=== PATIENT | female | born 1980 | race Caucasian/White ===

== ENCOUNTER → 2016-07-26 | Outpatient (REF) ==
[2016-07-26 16:03] LABS: THYROID STIMULATING HORMONE 9.1 uIU/mL (0.465-4.680)
== END ==
LOC: ZLAB.WCH 13:24
PROVIDERS: Nurse Practitioner Family
DX: Z01.89 Encounter for other specified special examinations (principal)

== ENCOUNTER → 2017-08-28 | Outpatient (REF) ==
[2017-08-28 19:10] LABS: THYROID STIMULATING HORMONE 6.74 uIU/mL (0.465-4.680)
== END ==
LOC: ZLAB.WCH 18:26
PROVIDERS: Nurse Practitioner Family
DX: Z01.89 Encounter for other specified special examinations (principal)

== ENCOUNTER 2020-06-30 19:50 | Emergency (ER) | payer OTHER ==
[~2020-06-30] VITALS: Ht 165.1 cm; Wt 100.0 kg
[2020-06-30] MEDS ORDERED: ALLEGRA 180MG180 MG PO (20:11)
[2020-06-30] MEDS ORDERED: PEPCID 20MG TAB20 MG PO (20:12)
[2020-06-30] MEDS ORDERED: ACCOLATE 220 MG/1 TA PO (20:12)
[2020-06-30] MEDS ORDERED: VITAMIN C500 MG PO (20:13)
[2020-06-30] MEDS ORDERED: MASON NATURAL2000 IU PO (20:14)
[2020-06-30] MEDS ORDERED: PRENATAL TABLET PO (20:15)
[2020-06-30] MEDS ORDERED: ZYRTEC 10MG10 MG PO (20:16)
[2020-06-30] MEDS ORDERED: ARMOUR THYROID180 M1 PO (20:17)
[2020-06-30 20:38] LABS: BASO % 0.2 % (0.0-2.0); EOS # 0.1 (0.0-0.7); EOS % 0.6 % (0-4.0); GRAN # 11.7 (1.4-6.5); GRAN % 75.1 % (42.2-75.2); HEMATOCRIT 38.7 % (37.0-47.0); HEMOGLOBIN 13.2 g/dl (12.5-16.0); LYMPH # 2.6 (1.2-3.4); MEAN CELL VOLUME 87 fl (80.0-100.0); MEAN CORPUSCULAR HEMOGLOBIN 30 pg (27.0-31.0); MEAN CORPUSCULAR HGB CONC 34 g/dl (33.0-37.0); MEAN PLATELET VOLUME 9.3 fl (7.4-10.4); MONO % 6.6 % (1.7-9.3); PLATELET COUNT 330 K/mm3 (130-400); RED BLOOD COUNT 4.47 M/mm3 (4.10-5.30); REDCELL DISTRIBUTION WIDTH-CV 13.5 % (11.5-14.5)
[2020-06-30 20:43] LABS: ALBUMIN 4.1 gm/dL (3.5-5.0); BILIRUBIN,TOTAL 0.3 mg/dL (0.0-1.0); CALCIUM 9.3 mg/dL (8.4-10.2); CREATININE, serum 0.56 (0.52-1.25); POTASSIUM 3.3 mmol/L (3.4-5.0); TOTAL PROTEIN 7.3 gm/dL (6.4-8.2)
[2020-06-30 20:47] LABS: COLLECTION METHOD CLEAN CATCH
[2020-06-30 20:53] LABS: MUCOUS Present /lpf; PH 5 (5-8); URINE APPEARANCE Hazy; URINE BACTERIA None Seen /hpf; URINE BILIRUBIN Negative (NEGATIVE); URINE BLOOD Negative (NEGATIVE); URINE COLOR Amber; URINE GLUCOSE Negative (NEGATIVE); URINE KETONE Trace (NEGATIVE); URINE LEUKOCYTE ESTERASE Negative (NEGATIVE); URINE NITRATE Negative (NEGATIVE); URINE PROTEIN(semi-quant) 1+ (NEGATIVE); URINE WBC 0-2 /hpf
[2020-06-30 22:30] VITALS: BP 113/74; PULSE 93; TEMP 98.1
[2020-06-30] MEDS ORDERED: FLEXERIL 1010 MG/TAB PO (22:32)
== END 2020-06-30 22:51 | disposition home or self-care (01) ==
LOC: COL.ER 19:50
PROVIDERS: Emergency Medicine
DX: O20.0 Threatened abortion (principal); O99.891 Other specified diseases and conditions complicating pregnancy; M54.5 Low back pain; R10.2 Pelvic and perineal pain; Z3A.18 18 weeks gestation of pregnancy
CPT/HCPCS: J2405; J3010; J7030

== ENCOUNTER 2020-10-25 11:46 | Outpatient (CLI) | payer OTHER ==
[2020-10-25] VITALS (16 sets, daily range): BP systolic 109–154; BP diastolic 56–91; PULSE 72–90; TEMP 98.1–98.4
[~2020-10-25] VITALS: Ht 165.1 cm; Wt 107.3 kg
--- NOTE | 2020-10-25 11:45 | NUR ---
Pt arrived on unit ambulatory and with complaints of elevated blood pressures at home and a headache. Pt denies any contractions, leaking of fluid or vaginal bleeding and reports normal movement. Vitals signs WNL. Pt's arrival reviewed with Dr. Grande. Orders for labs and serial blood pressures received.
[~2020-10-25 11:46] MED LIST: ACCOLATE 220 MG/1 TA PO; ALLEGRA 180MG180 MG PO; ARMOUR THYROID180 M1 PO; FLEXERIL 1010 MG/TAB PO; MASON NATURAL2000 IU PO; PEPCID 20MG TAB20 MG PO; PRENATAL TABLET PO; VITAMIN C500 MG PO; ZYRTEC 10MG10 MG PO
[2020-10-25] MEDS ORDERED: SYNTHROID 0.10.15 MG PO (12:06)
[2020-10-25] MEDS ORDERED: ACTIGALL 300MG300 MG (12:07)
[2020-10-25] MEDS ORDERED: FLOVENT 220MCG7.9 GM IH (12:07)
[2020-10-25] MEDS ORDERED: FISH OIL 1000MG1 CAP PO (12:08)
[2020-10-25] MEDS ORDERED: PROAIR HFA0.09 MG/AC IH (12:08)
[2020-10-25 12:22] LABS: BASO % 0.4 % (0.0-2.0); EOS # 0.1 (0.0-0.7); EOS % 1.1 % (0-4.0); GRAN # 6.8 (1.4-6.5); GRAN % 73.7 % (42.2-75.2); HEMOGLOBIN 11.9 g/dl (12.5-16.0); LYMPH # 1.5 (1.2-3.4); LYMPH % 16.1 % (20.0-51.0); MEAN CELL VOLUME 88 fl (80.0-100.0); MEAN CORPUSCULAR HEMOGLOBIN 30 pg (27.0-31.0); MEAN CORPUSCULAR HGB CONC 34 g/dl (33.0-37.0); MEAN PLATELET VOLUME 9.9 fl (7.4-10.4); MONO # 0.8 (0.1-0.6); MONO % 8.4 % (1.7-9.3); PLATELET COUNT 230 K/mm3 (130-400); RED BLOOD COUNT 4.01 M/mm3 (4.10-5.30); REDCELL DISTRIBUTION WIDTH-CV 13.2 % (11.5-14.5)
[2020-10-25 12:25] LABS: HEMATOCRIT 35.3 % (37.0-47.0)
--- NOTE | 2020-10-25 12:34 | NUR ---
Dr. Grande at the bedside. Plan of care and lab results reviewed with pt and at the bedside. SVE per Dr. Grande /-3
[2020-10-25 12:51] LABS: ALBUMIN 3.4 gm/dL (3.5-5.0); BILIRUBIN,TOTAL 0.1 mg/dL (0.0-1.0); CALCIUM 8.5 mg/dL (8.4-10.2); CREATININE, serum 0.54 (0.52-1.25); TOTAL PROTEIN 6.6 gm/dL (6.4-8.2)
[2020-10-25 14:11] LABS: COLLECTION METHOD CLEAN CATCH
[2020-10-25 14:24] LABS: MUCOUS Present /lpf; PH 5 (5-8); SQUAMOUS EPITHELIAL 0-2 /hpf; URINE APPEARANCE Hazy; URINE BACTERIA Rare /hpf; URINE BILIRUBIN Negative (NEGATIVE); URINE BLOOD Negative (NEGATIVE); URINE COLOR Yellow; URINE GLUCOSE Negative (NEGATIVE); URINE KETONE 2+ (NEGATIVE); URINE LEUKOCYTE ESTERASE Negative (NEGATIVE); URINE NITRATE Negative (NEGATIVE); URINE PROTEIN(semi-quant) Negative (NEGATIVE); URINE RBC 0-2 /hpf; URINE UROBILINOGEN Negative (NEGATIVE)
--- NOTE | 2020-10-25 17:30 | NUR ---
Dr. Grande at the bedside. Orders for IV fluids and meds received. See EMAR for details.
--- NOTE | 2020-10-25 19:57 | NUR ---
MONITORING DC'D AT THIS TIME. PT TO CHANGE INTO STREET [facility] WHILE DISCHARGE PAPERWORK PREPARED.
--- NOTE | 2020-10-25 20:15 | NUR ---
DISCHARGE INSTRUCTIONS REVIEWED WITH PT AND SPOUSE. NOTIFIED TO CONTACT [facility] ON FRIDAY TO NOTIFY THEM OF SYMPTOMS. PT STATES THAT SHE IS SCHEDULED FOR HER NEXT APPOINTMENT THAT DAY ALREADY. INSTRUCTED TO TAKE HOME BP CUFF WITH HER TO THE OFFICE. EDUCATED ON SYMPTOMS ASSOCIATED WITH HER 2ND COVID VACCINE. INSTRUCTED TO RETURN TO THE UNIT IF SYMPTOMS PERSIST, SHE HAS CONSISTENT CONTRACTIONS, HER WATER BREAKS, OR SHE HAS HEAVY VAGINAL BLEEDING. QUESTIONS ENCOURAGED AND ANSWERED, PT AND SPOUSE VERBALIZE UNDERSTANDING. PT OFF THE UNIT AMBULATORY WITH SPOUSE FOR HOME.
== END 2020-10-25 20:15 | disposition home or self-care (01) ==
LOC: LDRO 11:46
PROVIDERS: Obstetrics & Gynecology
DX: O13.3 Gestational [pregnancy-induced] hypertension without significant proteinuria, third trimester (principal); Z3A.35 35 weeks gestation of pregnancy
CPT/HCPCS: J0780; J7121

== ENCOUNTER 2020-11-02 11:15 | Outpatient (CLI) | payer OTHER ==
[~2020-11-02] VITALS: Ht 165.1 cm; Wt 108.9 kg
[~2020-11-02 11:15] MED LIST changes: +ACTIGALL 300MG300 MG; +FISH OIL 1000MG1 CAP PO; +FLOVENT 220MCG7.9 GM IH; +PROAIR HFA0.09 MG/AC IH; +SYNTHROID 0.10.15 MG PO
[2020-11-02 11:53] LABS: COLLECTION METHOD CATHETER
[2020-11-02 12:06] LABS: ALANINE AMINOTRANSFERASE 15 U/L (4-34); ALBUMIN 3.1 gm/dL (3.5-5.0); ALKALINE PHOSPHATASE 85 U/L (50-136); ANION GAP 6 mmol/L (7-16); AST,SGOT 20 U/L (15-37); BILIRUBIN,TOTAL < 0.1 mg/dL (0.0-1.0); BLOOD UREA NITROGEN 7 mg/dL (7-17); CALCIUM 8.4 mg/dL (8.4-10.2); CARBON DIOXIDE 22 mmol/L (22-30); CHLORIDE 107 mmol/L (98-107); CREATININE, serum 0.48 (0.52-1.25); GLUCOSE 125 mg/dL (74-106); POTASSIUM 3.6 mmol/L (3.4-5.0); SODIUM 134 mmol/L (137-145)
[2020-11-02 12:11] LABS: BASO % 0.3 % (0.0-2.0); EOS # 0.1 (0.0-0.7); EOS % 1.1 % (0-4.0); GRAN # 7.9 (1.4-6.5); GRAN % 75.5 % (42.2-75.2); LYMPH # 1.7 (1.2-3.4); MEAN CELL VOLUME 87 fl (80.0-100.0); MEAN CORPUSCULAR HEMOGLOBIN 30 pg (27.0-31.0); MEAN CORPUSCULAR HGB CONC 34 g/dl (33.0-37.0); MONO # 0.7 (0.1-0.6); MONO % 6.6 % (1.7-9.3); PLATELET COUNT 202 K/mm3 (130-400); REDCELL DISTRIBUTION WIDTH-CV 13.3 % (11.5-14.5)
[2020-11-02 12:16] LABS: HEMATOCRIT 32.3 % (37.0-47.0)
[2020-11-02 12:24] LABS: MUCOUS Present /lpf; PH 5 (5-8); SQUAMOUS EPITHELIAL 0-2 /hpf; URINE APPEARANCE Cloudy; URINE BACTERIA Rare /hpf; URINE BILIRUBIN Negative (NEGATIVE); URINE BLOOD Negative (NEGATIVE); URINE COLOR Amber; URINE GLUCOSE Negative (NEGATIVE); URINE KETONE Negative (NEGATIVE); URINE LEUKOCYTE ESTERASE Negative (NEGATIVE); URINE NITRATE Negative (NEGATIVE); URINE PROTEIN(semi-quant) Negative (NEGATIVE); URINE RBC 0-2 /hpf; URINE UROBILINOGEN Negative (NEGATIVE)
[2020-11-02 12:35] VITALS: BP 136/61; PULSE 88
[2020-11-02 12:50] VITALS: BP 120/58; PULSE 80
[2020-11-02 13:05] VITALS: BP 131/77; PULSE 81
[2020-11-02 13:20] VITALS: BP 134/65; PULSE 73
--- NOTE | 2020-11-02 13:35 | NUR ---
PT HERE FOR SERIAL BP'S AND LABS PER DR BAILEY. PT HAS BEEN HAVING INCREASED BLOOD PRESSURES OVER THE LAST COUPLE OF WEEKS. DR BAILEY IN AT 1315 TO EVALUATE LABS AND REVIEW BLOOD PRESSURES. ORDER RECEIVED TO DISCHARGE PT TO HOME AND SHE WILL RETURN NEXT WEEK,11/15/20, FOR A CYTOTEC INDUCTION. DISCHARGE INSTRUCTIONS REVIEWED WITH PT AND .
== END 2020-11-02 13:35 | disposition home or self-care (01) ==
LOC: LDRO 11:15
PROVIDERS: Obstetrics & Gynecology
DX: O13.3 Gestational [pregnancy-induced] hypertension without significant proteinuria, third trimester (principal); Z3A.36 36 weeks gestation of pregnancy

== ENCOUNTER 2020-11-05 20:04 | Outpatient (CLI) | payer OTHER ==
[~2020-11-05] VITALS: Ht 162.6 cm; Wt 108.6 kg
--- NOTE | 2020-11-05 20:10 | NUR ---
G4L2 at 36 weeks and 6 days arrives to hospital with complaint of irregular contractions. Pt states on drive to hospital they were 8-10 minutes apart and describes them as a dull cramp. Pt is being watched closely for pre-e and has induction scheduled for Friday for pre-e. Pt denies blurry vision or RUQ pain. Pt states she has been having headaches off and on for the past 3 weeks. Pt reports feeling good movement, denies LOF, and has had some spotting since yesterday. Pt oriented to room, call light within reach, bed in low and locked position. US and toco explained and applied. Admission assessment started. Vitals obtained. Plan of care reviewed with patient and spouse. SVE -/ballotable, membranes intact.
[2020-11-05 20:30] VITALS: BP 146/90; PULSE 99; TEMP 98
[2020-11-05 21:00] VITALS: BP 145/76; PULSE 83
[2020-11-05] MEDS ORDERED: ACTIGALL 300MG300 MG PO (21:00)
[2020-11-05] MEDS ORDERED: CALCIUM CARBON650 M2 (21:01)
--- NOTE | 2020-11-05 21:30 | NUR ---
RN to bedside. Pt reports feeling 4-5 contractions since arrival on unit. SVE unchanged from previous exam. Reviewed plan of care and discharge with patient, pt agreeable at this time.
[2020-11-05 21:45] VITALS: BP 146/78; PULSE 83
--- NOTE | 2020-11-05 21:55 | NUR ---
Discharge instructions explained and reviewed with patient. All questions answered. Pt seen ambulating off unit with spouse.
== END 2020-11-05 21:55 | disposition home or self-care (01) ==
LOC: LDRO 20:04 → LDR 20:24 → LDRO 21:55
DX: O62.9 Abnormality of forces of labor, unspecified (principal); Z3A.36 36 weeks gestation of pregnancy
CPT/HCPCS: OP

== ENCOUNTER 2020-11-07 04:43 | Inpatient (IN) | payer OTHER ==
[2020-11-07] VITALS (19 sets, daily range): BP systolic 124–168; BP diastolic 63–96; PULSE 62–88; TEMP 97.7–98.6
[~2020-11-07] VITALS: Ht 162.6 cm; Wt 109.1 kg
[~2020-11-07 04:43] MED LIST changes: +ACTIGALL 300MG300 MG PO; +CALCIUM CARBON650 M2
[2020-11-07 20:21] LABS: BASO % 0.2 % (0.0-2.0); EOS # 0.1 (0.0-0.7); EOS % 0.6 % (0-4.0); GRAN # 9.2 (1.4-6.5); GRAN % 74.2 % (42.2-75.2); HEMOGLOBIN 11.3 g/dl (12.5-16.0); LYMPH # 2.1 (1.2-3.4); MEAN CELL VOLUME 88 fl (80.0-100.0); MEAN CORPUSCULAR HEMOGLOBIN 30 pg (27.0-31.0); MEAN CORPUSCULAR HGB CONC 34 g/dl (33.0-37.0); MEAN PLATELET VOLUME 10.1 fl (7.4-10.4); MONO # 0.9 (0.1-0.6); MONO % 7.6 % (1.7-9.3); PLATELET COUNT 206 K/mm3 (130-400); RED BLOOD COUNT 3.77 M/mm3 (4.10-5.30); REDCELL DISTRIBUTION WIDTH-CV 13.7 % (11.5-14.5)
[2020-11-07 20:25] LABS: HEMATOCRIT 33.3 % (37.0-47.0)
[2020-11-07 20:26] LABS: ALANINE AMINOTRANSFERASE 15 U/L (4-34); ALBUMIN 3.3 gm/dL (3.5-5.0); ALKALINE PHOSPHATASE 98 U/L (50-136); ANION GAP 6 mmol/L (7-16); AST,SGOT 21 U/L (15-37); BILIRUBIN,TOTAL < 0.1 mg/dL (0.0-1.0); BLOOD UREA NITROGEN 8 mg/dL (7-17); CALCIUM 8.6 mg/dL (8.4-10.2); CARBON DIOXIDE 22 mmol/L (22-30); CHLORIDE 106 mmol/L (98-107); CREATININE, serum 0.54 (0.52-1.25); GLUCOSE 88 mg/dL (74-106); POTASSIUM 3.7 mmol/L (3.4-5.0); SODIUM 134 mmol/L (137-145); TOTAL PROTEIN 6.1 gm/dL (6.4-8.2)
[2020-11-08] VITALS (75 sets, daily range): BP systolic 115–168; BP diastolic 56–97; PULSE 54–93; TEMP 97.5–98.8
[2020-11-09 01:45] VITALS: BP 124/60; PULSE 68; TEMP 98.2
[2020-11-09 05:20] VITALS: BP 124/64; PULSE 59
[2020-11-09 06:14] LABS: BASO % 0.3 % (0.0-2.0); EOS # 0.2 (0.0-0.7); EOS % 1.6 % (0-4.0); GRAN # 9.5 (1.4-6.5); GRAN % 71.8 % (42.2-75.2); HEMOGLOBIN 10.2 g/dl (12.5-16.0); LYMPH # 2.3 (1.2-3.4); LYMPH % 17.2 % (20.0-51.0); MEAN CELL VOLUME 88 fl (80.0-100.0); MEAN CORPUSCULAR HEMOGLOBIN 30 pg (27.0-31.0); MEAN CORPUSCULAR HGB CONC 34 g/dl (33.0-37.0); MEAN PLATELET VOLUME 9.9 fl (7.4-10.4); MONO # 1.1 (0.1-0.6); MONO % 8.6 % (1.7-9.3); PLATELET COUNT 188 K/mm3 (130-400); RED BLOOD COUNT 3.42 M/mm3 (4.10-5.30); REDCELL DISTRIBUTION WIDTH-CV 13.6 % (11.5-14.5)
[2020-11-09 06:25] LABS: ALBUMIN 2.7 gm/dL (3.5-5.0); BILIRUBIN,TOTAL 0.1 mg/dL (0.0-1.0); CALCIUM 8.3 mg/dL (8.4-10.2); CREATININE, serum 0.68 (0.52-1.25); POTASSIUM 3.9 mmol/L (3.4-5.0); TOTAL PROTEIN 5.3 gm/dL (6.4-8.2)
[2020-11-09 08:40] VITALS: BP 108/56; PULSE 93; TEMP 98.4
[2020-11-09 11:50] VITALS: BP 113/59; PULSE 72; TEMP 98.2
[2020-11-09 16:07] VITALS: BP 140/68; PULSE 75; TEMP 98.1
[2020-11-09 20:00] VITALS: BP 129/72; PULSE 75; TEMP 98.5
[2020-11-10 01:00] VITALS: BP 122/68; PULSE 72; TEMP 98.5
[2020-11-10 08:53] VITALS: BP 134/58; PULSE 76; TEMP 98.1
[2020-11-10] MEDS ORDERED: PERCOCET 325 MG1 TA2 PO (09:54)
== END 2020-11-10 12:05 | disposition home or self-care (01) | DRG 807 ==
LOC: OB 04:43 → LDR 17:37 → OB 11-08 10:40
PROVIDERS: ADMIT Obstetrics & Gynecology
PROC: 10E0XZZ Delivery of Products of Conception, External Approach (ICD-10-PCS; principal; 2020-11-08)
PROC: 10907ZC Drainage of Amniotic Fluid, Therapeutic from Products of Conception, Via Natural or Artificial Opening (ICD-10-PCS; 2020-11-08)
DX: O14.94 Unspecified pre-eclampsia, complicating childbirth (principal); Z37.0 Single live birth; Z3A.37 37 weeks gestation of pregnancy; O99.284 Endocrine, nutritional and metabolic diseases complicating childbirth; O99.52 Diseases of the respiratory system complicating childbirth; O99.344 Other mental disorders complicating childbirth; F41.9 Anxiety disorder, unspecified; J45.909 Unspecified asthma, uncomplicated; E03.9 Hypothyroidism, unspecified
CPT/HCPCS: J2590; J2795; J7120

== ENCOUNTER 2020-11-12 20:13 | Emergency (ER) | payer OTHER ==
[~2020-11-12] VITALS: Ht 162.6 cm; Wt 102.3 kg
[~2020-11-12 20:13] MED LIST changes: +PERCOCET 325 MG1 TA2 PO
[2020-11-12 20:58] LABS: BASO % 0.1 % (0.0-2.0); EOS # 0.3 (0.0-0.7); EOS % 2.8 % (0-4.0); GRAN # 7.7 (1.4-6.5); GRAN % 72.9 % (42.2-75.2); HEMATOCRIT 33.2 % (37.0-47.0); HEMOGLOBIN 11.1 g/dl (12.5-16.0); LYMPH # 1.8 (1.2-3.4); LYMPH % 16.9 % (20.0-51.0); MEAN CELL VOLUME 88 fl (80.0-100.0); MEAN CORPUSCULAR HEMOGLOBIN 29 pg (27.0-31.0); MEAN CORPUSCULAR HGB CONC 33 g/dl (33.0-37.0); MEAN PLATELET VOLUME 8.9 fl (7.4-10.4); MONO # 0.7 (0.1-0.6); MONO % 6.9 % (1.7-9.3); PLATELET COUNT 275 K/mm3 (130-400); RED BLOOD COUNT 3.78 M/mm3 (4.10-5.30); REDCELL DISTRIBUTION WIDTH-CV 13.8 % (11.5-14.5)
[2020-11-12 21:08] LABS: ALBUMIN 3.4 gm/dL (3.5-5.0); BILIRUBIN,TOTAL 0.2 mg/dL (0.0-1.0); CALCIUM 8.4 mg/dL (8.4-10.2); CREATININE, serum 0.59 (0.52-1.25); POTASSIUM 3.7 mmol/L (3.4-5.0); TOTAL PROTEIN 6.5 gm/dL (6.4-8.2)
[2020-11-12 21:59] LABS: COLLECTION METHOD CATHETER
[2020-11-12 22:18] LABS: PH 7 (5-8); URINE APPEARANCE Hazy; URINE BACTERIA None Seen /hpf; URINE BILIRUBIN Negative (NEGATIVE); URINE BLOOD 3+ (NEGATIVE); URINE COLOR Yellow; URINE GLUCOSE Negative (NEGATIVE); URINE KETONE Negative (NEGATIVE); URINE LEUKOCYTE ESTERASE 2+ (NEGATIVE); URINE NITRATE Negative (NEGATIVE); URINE PROTEIN(semi-quant) 1+ (NEGATIVE); URINE UROBILINOGEN Negative (NEGATIVE); URINE WBC 20-50 /hpf
[2020-11-13 00:44] VITALS: BP 129/79; PULSE 85; TEMP 98.1
== END 2020-11-13 00:44 | disposition home or self-care (01) ==
LOC: COL.ER 20:13
PROVIDERS: Emergency Medicine
DX: O14.95 Unspecified pre-eclampsia, complicating the puerperium (principal); O73.1 Retained portions of placenta and membranes, without hemorrhage; Z88.6 Allergy status to analgesic agent; Z88.0 Allergy status to penicillin; Z88.8 Allergy status to other drugs, medicaments and biological substances; Z88.1 Allergy status to other antibiotic agents; Z91.040 Latex allergy status
CPT/HCPCS: J7030